=== PATIENT | female | born 1975 | race African-American/Black ===

== ENCOUNTER → 2019-11-17 | Outpatient (CLI) | payer OTHER ==
--- NOTE | 2019-11-17 15:32 | KCIC ---
Bilateral diagnostic digital mammograms with 3-D tomosynthesis: Reason for examination: Right breast pain at the 9:00 to 10:00 position for one month with lump. History of benign bilateral breast biopsies. Comparison is made to previous studies dated 02/25/2017 and 02/15/2017. Bilateral mammograms in CC and oblique projections were obtained with 2-D imaging and 3-D tomosynthesis imaging on a Siemens Inspiration unit and reviewed on the workstation. Interpretation was made with the benefit of CAD. The skin and nipples show no abnormalities. No abnormal axillary lymph nodes are seen. The breast parenchyma is extremely dense. (Breast density: Category D.) There are multiple small nodules present throughout both breasts which appear circumscribed and probably represent cysts and fibroadenoma seen previously. The area of clinical concern in the upper outer quadrant of the right breast appears to correspond with site of the previously aspirated complicated cystic lesion. There appear to be new nodules present in the left breast at the 4:00 B and 4:00 C positions. Ultrasound to follow. Impression: Multiple circumscribed nodules bilaterally consistent with history of cysts and fibroadenomatous type nodules. The area of clinical concern in the right breast corresponds to the site of previously aspirated complicated cystic lesion. Small new nodules at the 4:00 B and 4:00 C positions. Ultrasound to follow. Your patient's mammogram demonstrates that she has dense breast tissue (breast density category C or D), which could hide abnormalities, and if she has other risk factors for breast cancer that have been identified, she might benefit from supplemental screening tests that may be suggested by you as her ordering physician. Dense breast tissue, in and of itself, is a relatively common condition. Therefore, this information is not provided to cause undue concern, but rather to raise your awareness and to promote discussion with your patient regarding the presence of other risk factors, in addition to dense breast tissue. Your patient's mammography results will be sent to her. BI-RAD Category 0: Incomplete. Needs additional imaging evaluation. Bilateral breast ultrasound: Comparison is made to previous studies dated between 02/25/2017 and 08/30/2014. Ultrasound examination was in the area of clinical concern on the right breast, in the areas of new mammographic concern in the left breast and at the axilla bilaterally. In the right breast at the 9:00 position corresponding to the area of clinical concern, there is a 7.2 mm lesion consistent with a cyst. In the 10:00 position 9 cm from the nipple, there continues to be hypoechoic fibrocystic type lesion measuring 1.4 cm in greatest dimension. No abnormal appearing lymph nodes are seen in the right axilla. In the left breast at the 4:00 position 11 cm from the nipple, there is a 9.1 mm hypoechoic fibrocystic lesion lying in parallel orientation. In the 4:00 position 6.6 cm from the nipple, there is a 6.8 mm hypoechoic fibrocystic type lesion. No suspicious-appearing lesions are seen. No abnormal appearing lymph nodes are seen in the left axilla. IMPRESSION: Benign-appearing cystic and fibrocystic lesions at the 9:00 and 10:00 positions of the right breast. Small fibrocystic lesions at the 4:00 positions of the left breast. Recommend reevaluation with ultrasound in 6 months. BI-RADS Category 3: Probably Benign. "Our facility is accredited by the [employer] Mammography [employer]." This patient's information has been entered into a reminder system for the patient to be notified with the results of her examination and a target date for the next mammogram. Electronically signed by: Lizz Wilcox MD (11/17/2019 3:29 PM) [id number]
== END | disposition home or self-care (01) ==
LOC: KCIC MAMMO 09:39
PROVIDERS: ATTEND Obstetrics & Gynecology
DX: N64.89 Other specified disorders of breast (principal); N63.23 Unspecified lump in the left breast, lower outer quadrant; N63.10 Unspecified lump in the right breast, unspecified quadrant; N64.4 Mastodynia
CPT/HCPCS: 76641; 77066; G0279; 77062

== ENCOUNTER → 2021-09-09 | Outpatient (CLI) | payer OTHER ==
--- NOTE | 2021-09-09 17:14 | KCIC ---
Bilateral diagnostic digital mammograms with 3-D tomosynthesis: Reason for examination: Follow-up nodules. Comparison is made to previous studies dated back to 02/27/2016. Bilateral mammograms in CC and oblique projections were obtained with 2-D imaging and 3-D tomosynthes is imaging on a Siemens Inspiration unit and reviewed on the workstation. Interpretation was made wit h the benefit of CAD. The skin and nipples show no abnormalities. No abnormal axillary lymph nodes are seen. The breast par enchyma is extremely dense. (Breast density: Category D.) There are multiple circumscribed nodules pr esent bilaterally. There are no suspicious-appearing calcifications seen. A few benign calcifications are present. Biopsy clips remain present on the right. Impression: Multiple circumscribed nodules bilaterally. Ultrasound to follow. Your patient's mammogram demonstrates that she has dense breast tissue (breast density category C or D), which could hide abnormalities, and if she has other risk factors for breast cancer that have bee n identified, she might benefit from supplemental screening tests that may be suggested by you as her ordering physician. Dense breast tissue, in and of itself, is a relatively common condition. Therefo re, this information is not provided to cause undue concern, but rather to raise your awareness and t o promote discussion with your patient regarding the presence of other risk factors, in addition to d ense breast tissue. Your patient's mammography results will be sent to her. BI-RAD Category 0: Incomplete. Needs additional imaging evaluation. Bilateral breast ultrasound: Comparison is made to previous study dated 02/19/2021. Ultrasound was performed bilaterally of the breasts and axilla. In the right breast, there is a 1.2 cm cyst at the 9:00 position 8 cm from the nipple. There is also a more superficial 7.3 mm hypoechoic fibrocystic lesion which showed no significant change. There con tinues to be a hypoechoic fibrocystic type nodule at the 10:00 position 9 cm from the nipple measurin g 8.7 mm in greatest dimension which is stable. No abnormal appearing lymph nodes are seen in the axi lla. In the left breast, there is a 1.8 cm hypoechoic fibrocystic lesion with no abnormal vascularity pres ent. At the 12:00 position 5 cm from the nipple, there is a 9.4 mm hypoechoic fibrocystic lesion with no abnormal vascularity. At the 3:00 position 3 cm from the nipple, there is a 1.2 cm hypoechoic nod ule which lies in parallel orientation may represent a small fibroadenoma or papilloma. At the 4:00 p osition 10.5 cm from the nipple, there is a 9.6 mm hypoechoic circumscribed lesion which may represen t a small fibroadenoma. At the 4:00 position 5 cm from the nipple, there are 2 small hypoechoic nodul es which appear to be well-circumscribed and lie in parallel orientation and measures 9.3 mm and 6.3 mm in size with no abnormal vascularity seen. At the retroareolar positions, there is a 12.4 mm circu mscribed nodule which probably represents a complicated cyst. No suspicious-appearing nodules are see n. No abnormal appearing lymph nodes are seen in the left axilla. IMPRESSION: Multiple benign-appearing cystic, fibrocystic and fibroadenomatous type nodules present bilaterally. No grossly suspicious lesions are seen. Recommend 6 month follow-up with ultrasound. BI-RADS Category 3: Probably Benign. "Our facility is accredited by the [employer] Mammography [employer]." This patient's information has been entered into a reminder system for the patient to be notified wit h the results of her examination and a target date for the next mammogram. Electronically signed by: Lizz Wilcox MD (09/09/2021 5:12 PM) [id number]
== END ==
LOC: KCIC MAMMO 12:33
PROVIDERS: ATTEND Nurse Practitioner
DX: N63.23 Unspecified lump in the left breast, lower outer quadrant (principal); N60.01 Solitary cyst of right breast; R92.8 Other abnormal and inconclusive findings on diagnostic imaging of breast; D24.2 Benign neoplasm of left breast
CPT/HCPCS: 76641; 77066; G0279; 77062